=== PATIENT | male | born 1935 | race Hispanic/Latino ===

== ENCOUNTER → 2018-02-21 | Outpatient (CLI) | payer MEDICARE ==
[~2018-02-21] MED LIST: AVODART0.5 MG PO; FLOMAX0.4 MG PO; HCTZ PO; IRON; MULTIVITAM; NIASPAN500 MG PO; POTASSIUM99 MG PO; SYNTHROID50 MCG PO; VASOTEC10 MG PO; ZOCOR20 MG PO
--- NOTE | 2018-02-22 11:14 | Diagnostic Imaging Report ---
PROCEDURE:BONE DXA DUAL ENERGY INDICATION: Screening for osteoporosis The patient history questionnaire was completed and is available on PACS. COMPARISON:07/14/2016 and 01/21/14 FINDINGS: Evaluation of the left hip and lumbar spine was performed utilizing DEXA Hologic bone densitometer. The study is technically adequate. The patient's fracture risk is compared to an age-matched control. The patient denies prior surgery/fracture of the spine, hips or forearm. Left femoral neck bone mineral density: 0.625 g/cm2, T-score is -2.7, Z-score is -1.0. Left total hip bone mineral density: 0.806 g/cm2, T-score is -1.9, Z-score is -0.7. The measured bone mineral density in the left total hip has increased by 4.6% since the baseline study (01/21/2014) and by 2.9% since the previous study (07/14/2016). Lumbar spine total bone mineral density: 1.043 g/cm2, T-score is -0.4, Z-score was not calculated. The measured bone mineral density in the lumbar spine has increased by 8.1% since the baseline study (01/21/2014), and by 1.7% since the prior study (07/14/2016). IMPRESSION: Bone mineralization by WHO Classification is osteoporosis, based on measurements obtained at the left femoral neck. The fracture risk is high. Correlate clinically for the necessity and timing of the next bone mineral density study. Dictated by: Arjun Hawthorne M.D. on 02/22/2018 at 11:16 Electronically approved by: Arjun Hawthorne M.D. on 02/22/2018 at 11:16
== END ==
LOC: DX 12:56
PROVIDERS: ATTEND Internal Medicine
DX: M81.0 Age-related osteoporosis without current pathological fracture (principal)
CPT/HCPCS: 77080

== ENCOUNTER → 2019-04-24 | Outpatient (CLI) | payer MEDICARE ==
--- NOTE | 2019-04-24 15:14 | Diagnostic Imaging Report ---
EXAM: CHEST 2 VIEWS, PA and lateral DATE: 04/24/2019 Time stamp on exam: 12:57 PM INDICATION: Hypertension COMPARISON: None FINDINGS: LINES/TUBES: None LUNGS: Right basilar opacity likely secondary to atelectasis or infiltrate. PLEURA: No effusions or pneumothorax. HEART AND MEDIASTINUM: Enlarged heart with thoracic tortuosity. BONES AND SOFT TISSUES: No acute findings. IMPRESSION: Right basilar opacity compatible with atelectasis and/or infiltrate. Signed by: Dr. Jasbir Everett DO on 04/24/2019 3:11 PM
== END ==
LOC: RAD 12:30
PROVIDERS: ATTEND Internal Medicine
DX: I11.9 Hypertensive heart disease without heart failure (principal)
CPT/HCPCS: 71046

== ENCOUNTER → 2019-09-01 | Day surgery (SDC) | payer MEDICARE ==
[2019-08-28 13:02] LABS: BASOPHILS # (AUTO) 0.1 (0.0-0.1); BASOPHILS % 1.3 % (0.0-1.0); EOSINOPHILS # (AUTO) 0.1 (0.0-0.4); EOSINOPHILS % 2.1 % (0.0-6.0); HEMATOCRIT 44.7 % (38.2-49.6); HEMOGLOBIN 15.1 g/dL (14.0-18.0); LYMPHOCYTES % 18.3 % (18.0-39.1); MEAN CORPUSCULAR HEMOGLOBIN 29.2 pg (28-32); MEAN CORPUSCULAR HGB CONC 33.8 g/dL (31-35); MEAN CORPUSCULAR VOLUME 86.5 fL (81-99); MONOCYTES # (AUTO) 0.6 (0.2-0.8); MONOCYTES % 10.8 % (4.4-11.3); NEUTROPHILS # (AUTO) 3.5 (2.1-6.9); NEUTROPHILS % 67.1 % (38.7-80.0); PLATELET COUNT 159 x10e3/uL (140-360); RED BLOOD COUNT 5.17 x10e6/uL (4.3-5.7); RED CELL DISTRIBUTION WIDTH 13.3 % (11.7-14.4)
[~2019-09-01] MED LIST changes: +ENALAPRIL MALEA20 MG PO; +FINASTERIDE5 MG PO; +FLONASE; +HYDROCHLOROTHIA25 MG PO; +LEVOTHYROXINE50 MCG PO; +POTASSIUM CHLO20 ME1 PO; +PROPOFOL IV EMULSION 10 MG/ML 20 ML VIAL ONE; +RISEDRONATE PO; +SIMVASTATIN20 MG PO
--- OUTSIDE RECORDS SUMMARY | 2019-09-01 10:52 | XMS REPORT ---
Author Author [facility] Address Unknown Phone Unavailable Care Team Providers Care Seasoner Name Role Phone MARVEL CHAN Unavailable Unavailable Problems This patient has no known problems. Allergies, Adverse Reactions, Alerts This patient has no known allergies or adverse reactions. Medications This patient has no known medications. Results Test Description Test Time Test Comments Text Results Atomic Results Result Comments CHEST 2 VIEWS 2019-04-24 15:10:00 [place] [address] Patient Name: CHERRI CHAPPELL MR #: [id number] : 1935 Age/Sex: 83/M Req #: [id number] Adm Physician: Ordered by: MARVEL CHAN MD Report #: [id number] Location: [facility] Room/Bed: Procedure: [id number] DX/CHEST 2 VIEWS Exam Date: 04/24/19 Exam Time: 1250 REPORT STATUS: Signed EXAM: CHEST 2 VIEWS, PA and lateral DATE: 04/24/2019 Time s tamp on exam: 12:57 PM INDICATION: Hypertension COMPARISON: None FINDINGS: LINES/TUBES: None LUNGS: Right basilar opacity likely secondary to atelectasis or infiltrate. PLEURA: No effusions or pneumothorax. HEART AND MEDIASTINUM: Enlarged heart with thoracic tortuosity. BONES AND SOFT TISSUES: No acute findings. IMPRESSION: Right basilar opacity compatible with atelectasis and/or infiltrate. Signed by: Dr. Davis Everett DO on 04/24/2019 3:11 PM Dictated By: DAVIS EVERETT DO 10 Transcribed By: JEREMIAH on 04/24/191510 COPY TO: AMRVEL CHAN MD BONE DXA DUAL ENERGY [place] [address] Patient Name: CHERRI CHAPPELL MR #: [id number] : 1935 Age/Sex: 82/M Req #: [id number] Adm Physician: Ordered by: MARVEL CHAN MD Report #: [id number] Location: DX Room/Bed: Procedure: [id number] DX/BONE DXA DUAL ENERGY Exam Date: Exam Time: REPORT STATUS: Signed PROCEDURE: BONE DXA DUAL ENERGY INDICATION: Screening for osteoporosis The patient history questionnaire was completed and is available on PACS. COMPARISON: 07/14/2016 and 01/21/14 FINDINGS: Evaluation of the left hip and lumbar spine was performed utilizing DEXA Hologic bone densitometer. The study is technically adequate. The patient's fracture risk is compared to an age-matched control. The patient denies prior surgery/fracture of the spine, hips or forearm. Left femoral neck bone mineral density: 0.625 g/cm2, T-score is -2.7, Z-score is -1.0. Left total hip bone mineral density: 0.806 g/cm2, T-score is -1.9, Z-score is -0.7. The measured bone mineral density in the left total hip has increased by 4.6% since the baseline study (01/21/2014) and by 2.9% since the previous study (07/14/2016). Lumbar spine total bone mineral density: 1.043 g/cm2, T-score is -0.4, Z-score was not calculated. The measured bone mineral density in the lumbar spine has increased by 8.1% since the baseline study (01/21/2014), and by 1.7% since the prior study (07/14/2016). IMPRESSION: Bone mineralization by WHO Classification is osteoporosis, based on measurements obtained at the left femoral neck. The fracture risk is high. Correlate clinically for the necessity and timing of the next bone mineral density study. Dictated by: Cosme Hawthorne M.D. on 02/22/2018 at 11:16 Electronically approved by: Cosme Hawthorne M.D. on 02/22/2018 at 11:16 Dictated By: COSME HAWTHORNE MD 1116 Transcribed By: BRYON on 02/22/18 1116 COPY TO: MARVEL CHAN MD CHEST 2 VIEWS [place] [address] Patient Name: CHERRI CHAPPELL MR #: [id number] : 1935 Age/Sex: 81/M Req #: [id number] Adm Physician: Ordered by: MARVEL CHAN MD Report #: [id number] Location: [facility] Room/Bed: Procedure: [id number] DX/CHEST 2 VIEWS Exam Date: 07/09/17 Exam Time: 1721 REPORT STATUS: Signed PROCEDURE: X-RAY CHEST, TWO VIEWS COMPARISON: [facility], DX, CHEST 2 VIEWS, 12/10/2012, 13:22. INDICATIONS: HYPERTENSIVE CHRONIC KIDNEY DISEASE FINDINGS: LUNGS: No consolidations or edema. PLEURA: No effusions or pneumothorax. HEART T MEDIASTINUM: The heart is within normal size-limits. The aorta is enlarged and tortuous. Elevated lobular appearing right diaphragm. BONES T SOFT TISSUES: No acute findings. CONCLUSION: No acute thoracic abnormality. Davis Everett D.O. Dictated by: Davis Everett D.O. on 07/09/2017 at 17:56 Electronically approved by: Davis Everett D.O. on 07/09/2017 at 17:56 Dictated By: DAVIS EVERETT DO 55 Transcribed By: BRYON on 07/09/171755 COPY TO: MARVEL CHAN MD
[2019-09-01 15:20] VITALS: BP 143/80
== END | disposition home or self-care (01) ==
LOC: OR 10:49
PROVIDERS: ATTEND Internal Medicine Gastroenterology
DX: Z12.11 Encounter for screening for malignant neoplasm of colon (principal); D12.5 Benign neoplasm of sigmoid colon; I10 Essential (primary) hypertension; E66.3 Overweight; Z68.27 Body mass index [BMI] 27.0-27.9, adult; Z71.3 Dietary counseling and surveillance; K80.20 Calculus of gallbladder without cholecystitis without obstruction; E78.00 Pure hypercholesterolemia, unspecified; E03.9 Hypothyroidism, unspecified; Z01.810 Encounter for preprocedural cardiovascular examination; Z01.812 Encounter for preprocedural laboratory examination
CPT/HCPCS: 36415; 45385; 85025; 88305; 93005; J2704

== ENCOUNTER → 2019-12-09 | Outpatient (CLI) | payer MEDICARE ==
[~2019-12-09] MED LIST changes: -PROPOFOL IV EMULSION 10 MG/ML 20 ML VIAL ONE
--- NOTE | 2019-12-09 11:33 | Diagnostic Imaging Report ---
Chest, PA and lateral. History: Hypertension. Comparison: 04/24/2019. Discussion: The heart is within normal limits of size. The aorta has a tortuous appearance. There is no focal consolidation, sizable pleural effusion, or pneumothorax. No acute osseous abnormalities. IMPRESSION: No acute cardiopulmonary abnormality. Signed by: Wenceslao Astorga MD on 12/09/2019 11:31 AM
== END ==
LOC: RAD 10:39
PROVIDERS: ATTEND Internal Medicine
DX: I10 Essential (primary) hypertension (principal)
CPT/HCPCS: 71046

== ENCOUNTER → 2019-12-11 | Outpatient (CLI) | payer MEDICARE ==
--- NOTE | 2019-12-11 13:40 | Diagnostic Imaging Report ---
Exam: Bone mineral density study. History: Osteoporosis Comparison: 02/21/2018 Discussion: Evaluation of the left hip and lumbar spine was performed. The study is technically adequate. The patient's fracture risk is compared to an age-matched control. The patient denies prior surgery/fracture of the spine, hips or forearm. Left hip femoral neck bone mineral density: 0.834 g/cm2, T-score is -1.7. Bone mineral density is increased 3.5% in comparison to the prior examination from 02/21/2018. Lumbar spine total bone mineral density: 1.086 gm/cm2, T-score is 0.0. Bone mineral density is increased 4.2% from the prior examination from 02/21/2018 Impression: 1. Bone mineralization by WHO Classification of the left hip is osteopenia, the fracture risk is moderate. 2. Bone mineralization by WHO Classification of the lumbar spine is normal, the fracture risk is not increased. Recommendations: Medical evaluation for secondary causes of low bone mineral density may be appropriate. Correlate clinically for the necessity and timing of the next bone mineral density study. Signed by: Dr. Timothy Pop MD on 12/11/2019 1:37 PM
== END ==
LOC: DX 12:32
PROVIDERS: ATTEND Internal Medicine
DX: M81.0 Age-related osteoporosis without current pathological fracture (principal)
CPT/HCPCS: 77080

== ENCOUNTER → 2022-04-12 | Outpatient (CLI) | payer MEDICARE | LOC: DX 12:12 | PROVIDERS: ATTEND Internal Medicine | DX: M85.88 Other specified disorders of bone density and structure, other site (principal); I65.23 Occlusion and stenosis of bilateral carotid arteries; I35.1 Nonrheumatic aortic (valve) insufficiency | CPT/HCPCS: 71046; 77080 ==

== ENCOUNTER 2023-05-17 13:59 | Observation (INO) | payer MEDICARE ==
[~2023-05-17] VITALS: Ht 175.3 cm; Wt 83.9 kg
[2023-05-17] MEDS ORDERED: FUROSEMIDE INJ 10 MG/ML 4 ML VIAL IV ONE (14:30)
[2023-05-17 14:47] LABS: BASOPHILS # (AUTO) 0.1 (0.0-0.1); BASOPHILS % 0.9 % (0.0-1.0); EOSINOPHILS % 0.3 % (0.0-6.0); HEMATOCRIT 44.8 % (38.2-49.6); HEMOGLOBIN 15.2 g/dL (14.0-18.0); LYMPHOCYTES # (AUTO) 0.6 (1.0-3.2); LYMPHOCYTES % 9.2 % (18.0-39.1); MEAN CORPUSCULAR HEMOGLOBIN 28.9 pg (28-32); MEAN CORPUSCULAR HGB CONC 33.9 g/dL (31-35); MEAN CORPUSCULAR VOLUME 85.2 fL (81-99); MONOCYTES # (AUTO) 0.6 (0.2-0.8); MONOCYTES % 8.5 % (4.4-11.3); NEUTROPHILS # (AUTO) 5.3 (2.1-6.9); NEUTROPHILS % 80.8 % (38.7-80.0); PLATELET COUNT 161 x10e3/uL (140-360); RED BLOOD COUNT 5.26 x10e6/uL (4.3-5.7); RED CELL DISTRIBUTION WIDTH 14.6 % (11.7-14.4)
[2023-05-17 14:55] LABS: CLARITY,URINE SL CLOUDY (CLEAR); COLOR,URINE YELLOW (YELLOW); KETONES,URINE 1+ (NEGATIVE); LEUKOCYTE ESTERASE ,URINE NEGATIVE (NEGATIVE); NITRITE,URINE NEGATIVE (NEGATIVE); PROTEIN,URINE DIPSTICK >=300 (NEGATIVE); URINE UROBILINOGEN 0.2 mg/dL (0.2 - 1)
[2023-05-17 14:58] LABS: ANION GAP 14.7 mmol/L (8-16); CALCIUM 8.7 mg/dL (8.4-10.2); CREATININE, SERUM 0.92 mg/dL (0.72-1.25); POTASSIUM 3.7 mmol/L (3.5-5.1)
[2023-05-17 15:03] LABS: HYALINE CASTS 0-1 (0-1); RBC,URINE 0-5 /HPF (0-5); WBC,URINE (MAN) 0-5 /HPF (0-5)
[2023-05-17 15:04] LABS: BACTERIA,URINE FEW /HPF; EPITHELIAL CELLS,URINE FEW /LPF
[2023-05-17] MEDS ORDERED: SODIUM CHLORIDE FLUSH 10 ML SYR INJ PRN (17:15)
[2023-05-17] MEDS ORDERED: ASPIRIN 81 MG CHEW TAB PO ONE (17:15)
[2023-05-17 19:37] VITALS: PULSE 84; RESP 20; O2SAT 96
[2023-05-17 20:30] VITALS: BP 151/50; PULSE 73; RESP 20; TEMP 209.1; O2SAT 96
[2023-05-17 23:01] VITALS: BP 127/85; PULSE 84; RESP 20; O2SAT 96
[2023-05-18] VITALS (9 sets, daily range): BP systolic 121–146; BP diastolic 66–79; PULSE 62–77; RESP 18–22; TEMP 97.6–98.1; O2SAT 95–99
[2023-05-18] MEDS ORDERED: PROSCAR5 MG PO (03:39)
[2023-05-18] MEDS ORDERED: CITRACAL SOFT1 EACH (03:39)
[2023-05-18] MEDS ORDERED: ACTONEL35 MG PO (03:39)
[2023-05-18] MEDS ORDERED: FLOMAX0.4 MG PO (03:39)
[2023-05-18] MEDS ORDERED: CENTRUM ADULTS1 EACH PO (03:39)
[2023-05-18] MEDS ORDERED: VASOTEC10 M1 PO (03:39)
[2023-05-18] MEDS ORDERED: DOCUSATE SODIUM 100 MG CAP PO PRN (04:15)
[2023-05-18] MEDS ORDERED: ONDANSETRON HCL INJ 2MG/ML 2ML 2 MG/ML VIAL IV PRN (04:15)
[2023-05-18] MEDS ORDERED: METOPROLOL TARTRATE INJ 1 MG/ML VIAL IV PRN (04:15)
[2023-05-18] MEDS ORDERED: SIMETHICONE 80 MG CHEW PO PRN (04:15)
[2023-05-18] MEDS ORDERED: ACETAMINOPHEN 325 MG TAB PO PRN (04:15)
[2023-05-18] MEDS: LEVOTHYROXINE SODIUM 50 MCG TAB PO SCH (05:47)
[2023-05-18] MEDS: TAMSULOSIN HCL 0.4 MG CAP PO SCH (09:01)
[2023-05-18] MEDS: ENALAPRIL MALEATE 10 MG TAB PO SCH (09:01)
[2023-05-18] MEDS: FAMOTIDINE 20 MG TAB PO SCH ×2 (09:02→17:21)
[2023-05-18] MEDS: FUROSEMIDE INJ 10 MG/ML 4 ML VIAL IV SCH ×2 (09:02→17:21)
[2023-05-18] MEDS: FINASTERIDE 5 MG TAB PO SCH (09:02)
[2023-05-18] MEDS: CARVEDILOL 3.125 MG TAB PO SCH ×2 (09:02→17:22)
[2023-05-18] MEDS ORDERED: ONDANSETRON HCL 4 MG ORAL DISINTEGRATING TAB PO PRN (10:00)
[2023-05-18] MEDS: SIMVASTATIN 20 MG TAB PO SCH (20:54)
[2023-05-19] VITALS (9 sets, daily range): BP systolic 105–145; BP diastolic 67–90; PULSE 65–77; RESP 18–20; TEMP 97.3–98.4; O2SAT 95–100
[2023-05-19] MEDS: LEVOTHYROXINE SODIUM 50 MCG TAB PO SCH (05:09)
[2023-05-19 08:44] LABS: BASOPHILS # (AUTO) 0.1 (0.0-0.1); BASOPHILS % 1.4 % (0.0-1.0); EOSINOPHILS # (AUTO) 0.3 (0.0-0.4); EOSINOPHILS % 4.5 % (0.0-6.0); HEMATOCRIT 47.9 % (38.2-49.6); HEMOGLOBIN 15.7 g/dL (14.0-18.0); LYMPHOCYTES # (AUTO) 0.9 (1.0-3.2); LYMPHOCYTES % 15.7 % (18.0-39.1); MEAN CORPUSCULAR HGB CONC 32.8 g/dL (31-35); MEAN CORPUSCULAR VOLUME 88.5 fL (81-99); MONOCYTES # (AUTO) 0.5 (0.2-0.8); NEUTROPHILS # (AUTO) 3.8 (2.1-6.9); PLATELET COUNT 164 x10e3/uL (140-360); RED BLOOD COUNT 5.41 x10e6/uL (4.3-5.7); RED CELL DISTRIBUTION WIDTH 14.3 % (11.7-14.4)
[2023-05-19] MEDS ORDERED: POTASSIUM CHLORIDE 20 MEQ TAB CR PO SCH (09:00)
[2023-05-19 09:08] LABS: ANION GAP 12.1 mmol/L (8-16); CALCIUM 8.9 mg/dL (8.4-10.2); CREATININE, SERUM 1.23 mg/dL (0.72-1.25); POTASSIUM 3.1 mmol/L (3.5-5.1)
[2023-05-19] MEDS: TAMSULOSIN HCL 0.4 MG CAP PO SCH (09:47)
[2023-05-19] MEDS: ENALAPRIL MALEATE 10 MG TAB PO SCH (09:47)
[2023-05-19] MEDS: FINASTERIDE 5 MG TAB PO SCH (09:47)
[2023-05-19] MEDS: FAMOTIDINE 20 MG TAB PO SCH ×2 (09:47→17:48)
[2023-05-19] MEDS: FUROSEMIDE INJ 10 MG/ML 4 ML VIAL IV SCH ×2 (09:48→17:47)
[2023-05-19] MEDS: POTASSIUM CHLORIDE 20 MEQ TAB CR PO SCH ×2 (09:48→20:03)
[2023-05-19] MEDS: CARVEDILOL 3.125 MG TAB PO SCH ×2 (09:48→17:48)
[2023-05-19] MEDS: SIMVASTATIN 20 MG TAB PO SCH (20:04)
[2023-05-20 05:00] VITALS: BP 136/77; PULSE 69; RESP 18; TEMP 97.6; O2SAT 96
[2023-05-20] MEDS: LEVOTHYROXINE SODIUM 50 MCG TAB PO SCH (06:00)
[2023-05-20 08:00] VITALS: BP 132/82; PULSE 61; RESP 19; TEMP 98.1; O2SAT 98
[2023-05-20 08:12] VITALS: BP 132/82; PULSE 61; RESP 19; TEMP 98.1; O2SAT 98
[2023-05-20 08:14] LABS: ANION GAP 15.3 mmol/L (8-16); CALCIUM 8.6 mg/dL (8.4-10.2); CREATININE, SERUM 1.13 mg/dL (0.72-1.25); POTASSIUM 3.3 mmol/L (3.5-5.1)
[2023-05-20] MEDS: TAMSULOSIN HCL 0.4 MG CAP PO SCH (09:37)
[2023-05-20] MEDS: POTASSIUM CHLORIDE 20 MEQ TAB CR PO SCH (09:37)
[2023-05-20] MEDS: FINASTERIDE 5 MG TAB PO SCH (09:37)
[2023-05-20] MEDS: FAMOTIDINE 20 MG TAB PO SCH (09:38)
[2023-05-20] MEDS: CARVEDILOL 3.125 MG TAB PO SCH (09:38)
[2023-05-20] MEDS: ENALAPRIL MALEATE 10 MG TAB PO SCH (09:38)
[2023-05-20] MEDS: FUROSEMIDE INJ 10 MG/ML 4 ML VIAL IV SCH (09:38)
[2023-05-20 12:00] VITALS: BP 129/75; PULSE 63; RESP 22; TEMP 97.5; O2SAT 100
[2023-05-20] MEDS ORDERED: COREG3.125 MG PO (12:14)
[2023-05-20] MEDS ORDERED: FUROSEMIDE40 MG PO (12:15)
[2023-05-20] MEDS ORDERED: POTASSIUM CHLO10 ME1 PO (12:16)
[2023-05-20] MEDS ORDERED: POTASSIUM CHLORIDE 20 MEQ TAB CR PO ONE (12:40)
== END 2023-05-20 13:47 | disposition home or self-care (01) ==
LOC: ER 14:32 → ERHOLD 17:17 → MED/SURG3 20:25
PROVIDERS: ADMIT Internal Medicine; ATTEND Internal Medicine
DX: I11.0 Hypertensive heart disease with heart failure (principal); I50.43 Acute on chronic combined systolic (congestive) and diastolic (congestive) heart failure; I49.1 Atrial premature depolarization; R00.0 Tachycardia, unspecified; I08.3 Combined rheumatic disorders of mitral, aortic and tricuspid valves; I45.10 Unspecified right bundle-branch block; E03.9 Hypothyroidism, unspecified; Z20.822 Contact with and (suspected) exposure to COVID-19; Z79.899 Other long term (current) drug therapy
CPT/HCPCS: 36415 ×4; 71045; 71046; 80048 ×3; 81001; 82550 ×2; 83880; 84484 ×2; 85025 ×2; 93005 ×2; 93306; 94760; 94799 ×2; 97116; 97161; 97530; 99284; G0378 ×4; J1940 ×4; U0002